=== PATIENT | female | born 1995 | race Two or more races ===

== ENCOUNTER 2017-04-13 21:55 | Emergency (ER) | payer SELFPAY ==
[~2017-04-13] VITALS: Ht 154.9 cm; Wt 61.0 kg
[2017-04-14] MEDS ORDERED: IBUPROFEN 600MG TABLET PO ONE
[2017-04-14 02:18] VITALS: BP 121/79
== END 2017-04-14 02:20 | disposition home or self-care (01) ==
LOC: ER 21:55
DX: S60.221A Contusion of right hand, initial encounter (principal); S60.222A Contusion of left hand, initial encounter; S60.00XA Contusion of unspecified finger without damage to nail, initial encounter; Y04.0XXA Assault by unarmed brawl or fight, initial encounter; Y93.89 Activity, other specified; Y92.89 Other specified places as the place of occurrence of the external cause
CPT/HCPCS: 73130; 81025; 99284